=== PATIENT | male | born 1995 | race Caucasian/White ===

== ENCOUNTER 2024-02-23 09:33 | Inpatient (IN) | payer OTHER, SELFPAY ==
[2024-02-23] MEDS ORDERED: CEFAZOLIN 2 GM VIAL ONE (09:39)
[2024-02-23] MEDS ORDERED: Boostrix 0.5 ML (Tdap) VIAL (>/=7 yrs of age) ONE (09:40)
[2024-02-23 10:08] LABS: #Basophils 0.07 10x3/uL (0.0-0.2); %Basophils 0.7 % (0.0-1.0); %Eosinophils 2.6 % (0.0-10.0); %Monocytes 9.8 % (0.0-10.0); Hematocrit 45.4 % (42.0-52.0); Hemoglobin 15.1 g/dL (14.0-18.0); Mean Corpuscular HGB CONC 33.3 g/dL (32.0-36.0); Mean Corpuscular Hemoglobin 29.8 pg (27.0-31.0); Mean Corpuscular Volume 89.7 fL (78.0-98.0); Mean Platelet Volume 11.4 fL (7.4-10.4); Platelet Count 334 10x3/uL (130-400); RBC Distribution Width 13.2 % (11.5-14.5); Red Blood Cell (RBC) Count 5.06 mill/uL (4.70-6.10)
[2024-02-23] MEDS ORDERED: Morphine 4 MG/ML VIAL ONE (10:16)
[2024-02-23] MEDS ORDERED: Ketorolac Tromethamine 30 MG (1 mL) VIAL ONE (10:16)
[2024-02-23 10:19] LABS: ALT (SGPT) 30 U/L (8-55); AST (SGOT) 28 U/L (5-34); Albumin 4.2 g/dL (3.5-5.0); Alkaline Phosphatase 69 U/L (40-110); Anion Gap 13 mmol/L (10-20); BUN (Urea Nitrogen) 15 mg/dL (8.9-20.6); Bilirubin, Total 0.3 mg/dL (0.2-1.2); Calc. Creatinine Clearance 0 mL/min (70-130); Calcium 9.3 mg/dL (7.8-10.44); Carbon Dioxide 22 mmol/L (22-29); Chloride 111 mmol/L (98-107); Estimated GFR 104; Globulin 3.3 g/dL (2.4-3.5); Glucose 135 mg/dL (70-105); Protein, Total 7.5 g/dL (6.0-8.3); Sodium 142 mmol/L (136-145)
[2024-02-23] MEDS ORDERED: Iopamidol-370 76% 500 ML MDV (1 ML CHARGE) ONE (10:39)
[2024-02-23] MEDS ORDERED: Metoprolol Tartrate 5 MG (5 mL) VIAL ONE (10:52)
[2024-02-23] MEDS ORDERED: Glucagon 1 MG/ML KIT IM PRN (11:08)
[2024-02-23] MEDS ORDERED: Acetaminophen 325 MG TAB PO PRN (11:08)
[2024-02-23] MEDS ORDERED: Dextrose 5% in Water 1,000 ML IV PRN (11:08)
[2024-02-23] MEDS ORDERED: Dextrose 50% Abboject 50 ML SYRINGE SLOW IVP PRN (11:08)
[2024-02-23] MEDS ORDERED: Lidocaine 1% PF 5 ML VIAL ONE (11:30)
[2024-02-23 11:37] LABS: Troponin I Less than 0.010 ng/mL (< 0.028)
[2024-02-23 13:09] VITALS: BMI 28.3
[2024-02-23] MEDS ORDERED: Metoprolol Tartrate 5 MG (5 mL) VIAL IVP PRN (14:19)
[2024-02-23] MEDS: traMADol HCl 50 MG TAB PO PRN (14:57)
[2024-02-23] MEDS: Sodium Chloride 0.9% 1,000 ML IV SCH (14:57)
[2024-02-23] MEDS: Ondansetron PF 4 MG/2 ML Vial IVP PRN (14:57)
[2024-02-23] MEDS ORDERED: traMADol HCl 50 MG TAB PO PRN (20:08)
[2024-02-23] MEDS: Acetaminophen 325 MG TAB PO SCH (21:07)
[2024-02-23] MEDS: Famotidine 20 MG TAB PO SCH (21:08)
[2024-02-23] MEDS: Ondansetron ODT 4 MG TAB PO PRN (21:08)
[2024-02-23] MEDS: Gabapentin 300 MG CAP PO SCH (21:08)
[2024-02-24] MEDS: traMADol HCl 50 MG TAB PO SCH (00:45)
[2024-02-24] MEDS: Nicotine 14 MG PATCH TD PRN (00:46)
[2024-02-24 01:46] LABS: Amphetamine Not Detected (NotDetected); Barbiturates Screen Not Detected (NotDetected); Benzodiazepine Screen Not Detected (NotDetected); Cocaine Metabolite Screen Not Detected (NotDetected); Methadone Not Detected (NotDetected); Methamphetamine Not Detected (NotDetected); Opiate Screen Detected (NotDetected); Oxycodone Screen Not Detected (NotDetected); Phencyclidine (PCP) Not Detected (NotDetected); THC/Cannabinoid Screen Not Detected (NotDetected); Tricyclic Screen Not Detected (NotDetected)
[2024-02-24] MEDS: Cyclobenzaprine 10 MG TAB PO PRN (03:53)
[2024-02-24 04:45] LABS: #Basophils Less than 0.03 10x3/uL (0.0-0.2); #Eosinophils Less than 0.03 10x3/uL (0.0-0.7); %Basophils 0.1 % (0.0-1.0); %Lymphocytes 10.8 % (21.0-51.0); %Monocytes 11.7 % (0.0-10.0); Hematocrit 39.5 % (42.0-52.0); Hemoglobin 12.9 g/dL (14.0-18.0); Mean Corpuscular HGB CONC 32.7 g/dL (32.0-36.0); Mean Corpuscular Hemoglobin 29.8 pg (27.0-31.0); Mean Corpuscular Volume 91.2 fL (78.0-98.0); Mean Platelet Volume 11.6 fL (7.4-10.4); Platelet Count 254 10x3/uL (130-400); RBC Distribution Width 13.4 % (11.5-14.5); Red Blood Cell (RBC) Count 4.33 mill/uL (4.70-6.10)
[2024-02-24 04:58] LABS: Anion Gap 13 mmol/L (10-20); BUN (Urea Nitrogen) 13 mg/dL (8.9-20.6); Calc. Creatinine Clearance 146 mL/min (70-130); Calcium 8.8 mg/dL (7.8-10.44); Carbon Dioxide 23 mmol/L (22-29); Chloride 109 mmol/L (98-107); Estimated GFR 121; Glucose 121 mg/dL (70-105); Potassium 3.7 mmol/L (3.5-5.1); Sodium 141 mmol/L (136-145)
[2024-02-24 09:24] VITALS: TEMP 98.2
[2024-02-24 11:26] VITALS: BP 121/75
== END 2024-02-24 15:27 | disposition home or self-care (01) | DRG 185 ==
LOC: ERS 09:33 → ERHOLD 11:27 → 2NO 13:00
PROVIDERS: ADMIT Surgery; ATTEND Surgery
PROC: 0CQ0XZZ Repair Upper Lip, External Approach (ICD-10-PCS; principal; 2024-02-23)
DX: S22.42XA Multiple fractures of ribs, left side, initial encounter for closed fracture (principal); I48.0 Paroxysmal atrial fibrillation; S01.511A Laceration without foreign body of lip, initial encounter; F17.290 Nicotine dependence, other tobacco product, uncomplicated; V23.49XA Other motorcycle driver injured in collision with car, pick-up truck or van in traffic accident, initial encounter; Y93.55 Activity, bike riding; Y92.89 Other specified places as the place of occurrence of the external cause; Z88.1 Allergy status to other antibiotic agents
CPT/HCPCS: 12011; 36415; 70450; 70486; 71045; 71260; 72125; 72170; 74177; 80048; 80053; 80306; 83880; 84484; 85025; 90471; 90715; 93005; 93010; 93306; 96365; 96375; G0390; J1885; J2272; J2405; J7030; Q0162; Q9967